=== PATIENT | female | born 1945 | race Two or more races ===

== ENCOUNTER 2018-06-10 17:25 | Emergency (ER) | payer OTHER ==
[2018-06-10] MEDS ORDERED: KETOROLAC TROMETHAMINE 60 MG/2 ML SDV IM ONE (18:40)
[2018-06-10] MEDS ORDERED: BACLOFEN 20 MG TABLET PO ONE (18:42)
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
[2018-06-10 20:40] VITALS: BP 152/70
== END 2018-06-10 20:40 | disposition home or self-care (01) ==
LOC: ER 17:25
DX: S39.012A Strain of muscle, fascia and tendon of lower back, initial encounter (principal); S29.012A Strain of muscle and tendon of back wall of thorax, initial encounter; S16.1XXA Strain of muscle, fascia and tendon at neck level, initial encounter; V43.62XA Car passenger injured in collision with other type car in traffic accident, initial encounter; M47.9 Spondylosis, unspecified
CPT/HCPCS: 99283; 96372; 72050; 72110; 72070; L0120; J1885; J3490